=== PATIENT | female | born 1950 | race Caucasian/White ===

== ENCOUNTER 2018-01-10 11:14 | Emergency (ER) | payer BC, MEDICARE ==
[~2018-01-10] VITALS: Ht 160 cm; Wt 71.0 kg
[~2018-01-10 11:14] MED LIST: UBID1CAP54 PO
[2018-01-10 11:41] LABS: CLARITY,URINE TURBID (Clear); COLOR,URINE RED (Yellow)
[2018-01-10 11:42] LABS: UA COLLECTION TYPE NON-SPECIFIED
[2018-01-10 11:43] LABS: URINE HCG NEGATIVE (NEG)
[2018-01-10 11:47] LABS: BASOPHILS % (AUTO) 0.3 % (0-1); EOSINOPHILS # (AUTO) 0.4 X10'3 (0-0.9); EOSINOPHILS % (AUTO) 2.4 % (0-6); HEMATOCRIT 42.4 % (35.0-45.0); HEMOGLOBIN 14.3 g/dl (12.0-16.0); LYMPHOCYTES # (AUTO) 1.3 X10'3 (1.1-4.8); LYMPHOCYTES % (AUTO) 8.7 % (21-51); MEAN CORPUSCULAR HGB CONC 33.7 % (33.0-36.5); MEAN PLATELET VOLUME 7.4 FL (7.4-10.4); MONOCYTES # (AUTO) 0.8 X10'3 (0-0.9); MONOCYTES % (AUTO) 5.1 % (2-12); NEUTROPHILS # (AUTO) 12.8 X10'3 (1.8-7.7); NEUTROPHILS % (AUTO) 83.5 % (42-75); PLATELET COUNT 321 X10'3 (140-440); RED BLOOD COUNT 4.77 X10'6 (4.20-5.60); RED CELL DISTRIBUTION WIDTH 13.2 % (11.5-14.5); WHITE BLOOD COUNT 15.4 X10'3 (4.5-11.0)
[2018-01-10 11:54] LABS: RBC,URINE TNTC /HPF (0-2)
[2018-01-10 11:55] LABS: BACTERIA,URINE FEW /HPF (Neg); SQUAMOUS EPITHELIAL CELL,UR FEW /LPF (FEW); WBC CLUMPS,URINE FEW /HPF (NEGATIVE)
[2018-01-10] MEDS ORDERED: morphine 4 MG/ML inj SYRINge IV ONE ×2 (11:55→13:20)
[2018-01-10] MEDS ORDERED: ondansetron/PF 4mg/2ml inj IV ONE (11:55)
[2018-01-10] MEDS ORDERED: normal saline 1000ML IV soln IV ONE (11:55)
[2018-01-10 11:58] LABS: PROTHROMBIN TIME 9.9 SECONDS (9.0-12.0)
[2018-01-10 12:01] LABS: ALANINE AMINOTRANSFERASE 27 U/L (12-78); ALBUMIN 3.8 G/DL (3.4-5.0); ALKALINE PHOSPHATASE 97 IU/L (46-116); ANION GAP 8 (8-16); ASPARTATE AMINO TRANSFERASE 21 U/L (10-37); BILIRUBIN,TOTAL 0.3 MG/DL (0.1-1.0); BLOOD UREA NITROGEN 16 MG/DL (7-18); BUN/CREATININE RATIO 18.4 (6.6-38.0); CALCIUM 9.4 MG/DL (8.5-10.1); CHLORIDE 101 MMOL/L (99-107); CREATININE 0.87 MG/DL (0.40-0.90); GLUCOSE 127 MG/DL (70-104); POTASSIUM 3.8 MMOL/L (3.5-5.1); SODIUM 138 MMOL/L (135-145); TOTAL CARBON DIOXIDE 29.3 MMOL/L (24-32); TOTAL PROTEIN 7.6 G/DL (6.4-8.2); eGFR 65 ML/MIN
[2018-01-10] MEDS ORDERED: CefTRIAXone 2gm/D5W 50ml 50 ML IV ONE (12:40)
[2018-01-10] MEDS ORDERED: NAPR-56 PO (13:17)
[2018-01-10] MEDS ORDERED: HYDR-4383 PO (13:17)
[2018-01-10] MEDS ORDERED: ONDA4TAB9 PO (13:17)
[2018-01-10] MEDS ORDERED: CEPH-571 PO (13:17)
[2018-01-10] MEDS ORDERED: ketorolac trometh. 30mg/ml inj. IV ONE (13:20)
[2018-01-10 14:47] VITALS: BP 118/55
== END 2018-01-10 14:51 | disposition home or self-care (01) ==
LOC: ER 11:14
DX: N20.0 Calculus of kidney (principal); N12 Tubulo-interstitial nephritis, not specified as acute or chronic; R10.31 Right lower quadrant pain; Z98.890 Other specified postprocedural states; Z79.899 Other long term (current) drug therapy
CPT/HCPCS: 36415; 74176; 80053; 81001; 81025; 83605; 85025; 85610; 87040; 87077; 87088; 87186; 96365; 96375; 96376; 99285; J0696; J1885; J2270; J2405; J7030